=== PATIENT | female | born 1995 | race Native Hawaiian/Other Pacific Islander ===

== ENCOUNTER 2020-03-20 15:45 | Emergency (ER) | payer OTHER ==
[~2020-03-20] VITALS: Ht 167.6 cm; Wt 120.2 kg
[2020-03-20 16:15] VITALS: BP 145/84; TEMP 97
== END 2020-03-20 16:19 | disposition home or self-care (01) ==
LOC: ED 15:45
DX: L98.8 Other specified disorders of the skin and subcutaneous tissue (principal); L01.09 Other impetigo
CPT/HCPCS: 99282

== ENCOUNTER 2020-08-20 10:17 | Outpatient (CLI) | payer OTHER | END 2020-08-20 19:34 | disposition home or self-care (01) | LOC: CT 10:17 | DX: H66.93 Otitis media, unspecified, bilateral (principal); J01.90 Acute sinusitis, unspecified; F41.9 Anxiety disorder, unspecified; M54.2 Cervicalgia ==

== ENCOUNTER 2020-11-27 10:52 | Outpatient (CLI) | payer OTHER | END 2020-11-27 21:42 | disposition home or self-care (01) | LOC: LABW 10:52 | PROVIDERS: ATTEND Family Medicine | DX: R74.8 Abnormal levels of other serum enzymes (principal); K76.0 Fatty (change of) liver, not elsewhere classified | CPT/HCPCS: 36415; 80074 ==

== ENCOUNTER 2020-12-04 14:14 | Outpatient (CLI) | payer OTHER | END 2020-12-04 19:47 | disposition home or self-care (01) | LOC: LAB 14:14 | PROVIDERS: ATTEND Family Medicine | DX: Z20.828 Contact with and (suspected) exposure to other viral communicable diseases (principal); R05 Cough; R50.9 Fever, unspecified | CPT/HCPCS: 87635; G2023; U0003 ==

== ENCOUNTER 2020-12-23 11:33 | Emergency (ER) | payer OTHER ==
[~2020-12-23] VITALS: Ht 167.6 cm; Wt 124.7 kg
[2020-12-23 11:47] VITALS: TEMP 97.2
[2020-12-23 14:32] VITALS: BP 138/82
== END 2020-12-23 14:32 | disposition home or self-care (01) ==
LOC: ED 11:33
DX: S16.1XXA Strain of muscle, fascia and tendon at neck level, initial encounter (principal)
CPT/HCPCS: 99283

== ENCOUNTER 2021-01-15 22:26 | Emergency (ER) | payer OTHER ==
[~2021-01-15] VITALS: Ht 167.6 cm; Wt 124.7 kg
[2021-01-15 23:06] LABS: PARTIAL THROMBOPLASTIN TIME 29.4 SECONDS (24.5-33.6)
[2021-01-15 23:07] LABS: POTASSIUM 3.7 mmol/L (3.6-5.2); SODIUM 138 mmol/L (136-145)
[2021-01-15 23:08] LABS: PLATELET COUNT 233 K/uL (152-353)
[2021-01-16 01:35] VITALS: BP 124/57; TEMP 98.7
== END 2021-01-16 01:35 | disposition home or self-care (01) ==
LOC: ED 22:26
PROVIDERS: Emergency Medicine
DX: R07.89 Other chest pain (principal); K29.60 Other gastritis without bleeding
CPT/HCPCS: 36415; 80053; 80307; 81000; 81025; 82550; 84484; 85027; 85379; 85610; 85730; 93005; 96360; 99284

== ENCOUNTER 2021-07-22 08:54 | Outpatient (CLI) | payer OTHER | END 2021-07-22 19:28 | disposition home or self-care (01) | LOC: MRI 08:54 | PROVIDERS: ATTEND Nurse Practitioner Family | DX: G44.52 New daily persistent headache (NDPH) (principal) ==

== ENCOUNTER 2021-08-27 13:22 | Outpatient (CLI) | payer OTHER | END 2021-08-27 19:31 | disposition home or self-care (01) | LOC: MRI 13:22 | PROVIDERS: ATTEND Nurse Practitioner | DX: H93.13 Tinnitus, bilateral (principal); R41.3 Other amnesia; R51.9 Headache, unspecified; H53.9 Unspecified visual disturbance | CPT/HCPCS: 36415; 82565; 84520; A9576 ==

== ENCOUNTER 2022-01-08 10:01 | Outpatient (CLI) | payer OTHER | END 2022-01-08 19:13 | disposition home or self-care (01) | LOC: US 10:01 | PROVIDERS: ATTEND Nurse Practitioner Family | DX: R74.01 Elevation of levels of liver transaminase levels (principal) ==

== ENCOUNTER 2022-02-03 10:02 | Outpatient (CLI) | payer OTHER | END 2022-02-03 19:01 | disposition home or self-care (01) | LOC: RESP 10:02 | PROVIDERS: ATTEND Nurse Practitioner Family | DX: G56.11 Other lesions of median nerve, right upper limb (principal) | CPT/HCPCS: 95885; 95910 ==

== ENCOUNTER 2022-07-08 11:00 | Outpatient (CLI) | payer OTHER ==
[2022-07-08 13:13] LABS: PLATELET COUNT 266 K/uL (152-353)
== END 2022-07-08 20:01 | disposition home or self-care (01) ==
LOC: LABW 11:00 → CT 11:00 → LABW 20:01
PROVIDERS: ATTEND Nurse Practitioner Family
DX: R10.11 Right upper quadrant pain (principal); M25.551 Pain in right hip
CPT/HCPCS: 36415; 80053; 85027; Q9963

== ENCOUNTER 2022-09-08 14:47 | Emergency (ER) | payer OTHER ==
[~2022-09-08] VITALS: Ht 167.6 cm; Wt 122.5 kg
[2022-09-08 14:47] VITALS: TEMP 98
[2022-09-08 15:35] LABS: PLATELET COUNT 254 K/uL (152-353)
[2022-09-08 15:40] LABS: POTASSIUM 4.1 mmol/L (3.6-5.2)
[2022-09-08 15:56] LABS: PARTIAL THROMBOPLASTIN TIME 31.3 SECONDS (24.5-33.6)
[2022-09-08 18:00] VITALS: BP 126/88
== END 2022-09-08 18:20 | disposition home or self-care (01) ==
LOC: ED 14:47
PROVIDERS: Emergency Medicine
DX: N93.8 Other specified abnormal uterine and vaginal bleeding (principal); Z98.51 Tubal ligation status
CPT/HCPCS: 80053; 85027; 85610; 85730; 99284

== ENCOUNTER 2022-10-27 15:57 | Outpatient (CLI) | payer OTHER | END 2022-10-27 19:40 | disposition home or self-care (01) | LOC: RAD 15:57 | PROVIDERS: ATTEND Nurse Practitioner Family | DX: S86.911A Strain of unspecified muscle(s) and tendon(s) at lower leg level, right leg, initial encounter (principal); Y92.89 Other specified places as the place of occurrence of the external cause ==